=== PATIENT | female | born 1990 | race Asian ===

== ENCOUNTER 2018-11-20 23:36 | Emergency (ER) | payer BC, OTHER ==
[2018-11-20] MEDS ORDERED: Lidocaine 1% 20 ML MDV INFILT ONE ×2 (23:37)
[2018-11-20 23:50] VITALS: BP 147/77
[2018-11-21] MEDS ORDERED: Amoxicillin/Clavulanate K 875-125 MG Tab PO ONE (00:07)
--- NOTE | 2018-11-21 00:10 | EDM.PDOC ---
ED HPI GENERAL MEDICAL PROBLEM - General Chief Complaint: Laceration Stated Complaint: LACERATION ON CALF Time Seen by Provider: 11/20/18 23:40 Source of Information: Reports: Patient, Other (coworker) History Limitations: Reports: No Limitations - History of Present Illness INITIAL COMMENTS - FREE TEXT/NARRATIVE: 28 y.o. female came to the ed with her coworker after a knife fell onto her right lower leg at work, wound was bleeding immediately. 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 BP 147/ 77 Temp 36.6 pulse 69 RR 16 Pulse ox 100% on RA Onset Date: 11/20/18 Onset Time: 23:00 Duration: Minutes:, Constant Location: Reports: Lower Extremity, Right - Related Data Allergies Allergy/AdvReac Type Severity Reaction Status Date / Time No Known Allergies Allergy Verified 11/20/18 23:51 Home Meds: Home Meds Control Pill 11/20/18 [History] Amoxicillin/Potassium Clav [Augmentin 875-125 Tablet] 1 each PO BID #20 tablet 11/21/18 [Rx] Past Medical History - Past Health History Medical/Surgical History: Denies Medical/Surgical History Other Gastrointestinal History: related heartburn Other Musculoskeletal History: leg pain Social & Family History - Tobacco Use Smoking Status *Q: Never Smoker - Recreational Drug Use Recreational Drug Use: No ED ROS GENERAL - Review of Systems Review Of Systems: See Below Constitutional: Reports: No Symptoms HEENT: Reports: No Symptoms Respiratory: Reports: No Symptoms Cardiovascular: Reports: No Symptoms Endocrine: Reports: No Symptoms GI/Abdominal: Reports: No Symptoms : Reports: No Symptoms Musculoskeletal: Reports: No Symptoms Skin: Reports: Wound (left lower leg) Neurological: Reports: No Symptoms Psychiatric: Reports: No Symptoms Hematologic/Lymphatic: Reports: No Symptoms Immunologic: Reports: No Symptoms ED EXAM, SKIN/RASH Exam: See Below Exam Limited By: No Limitations General Appearance: Alert, WD/WN, Mild Distress Eye Exam: Bilateral Eye: Normal Inspection Ears: Normal External Exam Nose: Normal Inspection Throat/Mouth: Normal Inspection, Normal Lips, Normal Teeth, Normal Gums, Normal Voice, No Airway Compromise Head: Atraumatic, Normocephalic Neck: Normal Inspection, Supple, Non-Tender, Full Range of Motion Respiratory/Chest: No Respiratory Distress, Lungs Clear, Normal Breath Sounds, No Accessory Muscle Use, Chest Non-Tender Cardiovascular: Normal Peripheral Pulses, Regular Rate, Rhythm, No Edema, No Gallop, No JVD, No Murmur, No Rub Peripheral Pulses: 1+: Brachial (R) GI/Abdominal: Normal Bowel Sounds, Soft, Non-Tender, No Organomegaly, No Abnormal Bruit, No Mass, Pelvis Stable (Female) Exam: Deferred Rectal (Female) Exam: Deferred Back Exam: Normal Inspection, Full Range of Motion Extremities: Normal Inspection, Normal Range of Motion, Non-Tender, No Pedal Edema Neurological: Alert, Oriented, CN II-XII Intact, Normal Cognition, Normal Gait Psychiatric: Normal Affect, Normal Mood Skin: Warm, Dry, Wound/Incision (LAC right lower extremity) Location, Skin: Lower Extremity, Right Characteristics: Other (no rash) Associated features: Warmth, Tenderness, Swelling Lymphatic: No Adenopathy ED SKIN PROCEDURES - Laceration/Wound Repair Right Middle Medial Leg Lac/Wound length In cm: 2 Appearance: Subcutaneous, Linear, Clean Distal NVT: Neuro & Vascular Intact, No Tendon Injury Anesthetic Type: Local Local Anesthesia - Lidocaine (Xylocaine): 1% Plain Local Anesthetic Volume: 3cc Skin Prep: Providone-Iodine (Betadine) Saline Irrigation (cc's): 2 Exploration/Debridement/Repair: Wound Explored, In a Bloodless Field, Explored to Base Closed with: Sutures Suture Size: 4-0 # of Sutures: 4 Suture Type: Interrupted Sterile Dressing Applied: Nurse Tetanus Status Addressed: Yes (utd 2-13) Complications: No Course - Vital Signs Text/Narrative:: 28 y.o. female came to the ed with her coworker after a knife fell onto her right lower leg at work, wound was bleeding immediately. 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 BP 147/ 77 Temp 36.6 pulse 69 RR 16 Pulse ox 100% on RA PE: WNWD W F tayla righ lower leg LAC Procedure: Please see note above. Impression: Laceration left lower leg, repaired in the ed Tx: Wound care, Augmentin Reexam: Improved Plan: D/C with instructions Last Recorded V/S: Last Vital Signs Temp 36.6 C 11/20/18 23:40 Pulse 69 11/20/18 23:40 Resp 16 11/20/18 23:40 BP 147/77 H 11/20/18 23:40 Pulse Ox 100 11/20/18 23:40 - Orders/Labs/Meds Meds: Medications Discontinued Medications Generic Name Dose Route Start Last Admin Trade Name Unique PRN Reason Stop Dose Admin Amoxicillin/Clavulanate Potassium 1 tab 11/21/18 00:07 Augmentin 875 Mg/125 Mg PO 11/21/18 00:08 ONETIME ONE Departure - Departure Time of Disposition: 00:07 Disposition: Home, Self-Care 01 Condition: Good Clinical Impression: Laceration - Discharge Information Prescriptions: Amoxicillin/Potassium Clav [Augmentin 875-125 Tablet] 1 each PO BID #20 tablet Referrals: Arturo Chao MD [Primary Care Provider] - Forms: ED Department Discharge Additional Instructions: Please apply neosporine ointment twice daily to wound, Augmentin as recommended , wound check in 2 days, suture removal in 10 days, come back if your symptoms get worse acutely.
== END 2018-11-21 00:25 | disposition home or self-care (01) ==
LOC: FB.ED 23:36
DX: S81.811A Laceration without foreign body, right lower leg, initial encounter (principal); W26.0XXA Contact with knife, initial encounter; Y99.0 Civilian activity done for income or pay
CPT/HCPCS: 12001; 99000; 99282; A9270

== ENCOUNTER 2021-05-26 20:08 | Emergency (ER) | payer BC, OTHER ==
[2021-05-26] MEDS ORDERED: Nitrofurantoin Monohydrate/Macrocrystalline 100 MG Cap PO ONE (20:09)
--- NOTE | 2021-05-26 20:48 | EDM.PDOC ---
ED HPI GENERAL MEDICAL PROBLEM - General Chief Complaint: Genitourinary Problem Stated Complaint: STOMACH PAIN Time Seen by Provider: 05/26/21 20:46 Source of Information: Reports: Patient History Limitations: Reports: No Limitations - History of Present Illness INITIAL COMMENTS - FREE TEXT/NARRATIVE: Tara jones is about 8 week .and complains of dysuria,frequency and left flank,and lower back pain. Also has a low grade fever. No other systemic symptoms, or vaginal bleeding. Treatments FAMILY MEDICINE RESIDENT: Reports: Acetaminophen L lower back radiating to L lower abdomen Pain Score (Numeric/FACES): 6 - Related Data Allergies Allergy/AdvReac Type Severity Reaction Status Date / Time No Known Allergies Allergy Verified 05/26/21 20:32 Home Meds: Home Meds Pnv No.95/Ferrous Fum/Folic AC [ Multivitamin Tablet] 1 each PO DAILY 05/26/21 [History] Past Medical History - Past Health History Medical/Surgical History: Denies Medical/Surgical History Other Gastrointestinal History: related heartburn Other Musculoskeletal History: leg pain ED ROS GENERAL - Review of Systems Review Of Systems: Comprehensive ROS is negative, except as noted in HPI. ED EXAM, RENAL/ - Physical Exam Exam: See Below Exam Limited By: No Limitations General Appearance: Alert, WD/WN, No Apparent Distress Back Exam: Normal Inspection, CVA Tenderness (L) Extremities: Normal Inspection Neurological: Alert, CN II-XII Intact Course - Vital Signs Last Recorded V/S: Last Vital Signs Temp 99.7 F 05/26/21 20:20 Pulse 71 05/26/21 20:20 Resp 18 05/26/21 20:20 BP 142/92 H 05/26/21 20:20 Pulse Ox 100 05/26/21 20:20 - Orders/Labs/Meds Orders: Active Orders 24 hr Category Date Time Status OB Follow Up 1st Gest [US] Stat Exams 05/26/21 21:02 Ordered CULTURE URINE [] Routine Lab 05/26/21 20:20 Received Labs: Laboratory Tests 05/26/21 05/26/21 Range/Units 20:40 20:45 WBC 12.3 H (3.0-10.3) x10-3/uL RBC 4.57 (3.60-5.20) x10(6)uL Hgb 12.9 (11.4-15.5) g/dL Hct 38.5 (34.2-48.2) % MCV 84.3 (76.7-100.5) fL MCH 28.3 (23.9-33.9) pg MCHC 33.5 (31.9-34.8) g/dL RDW 12.6 (12.3-16.5) % Plt Count 332 (151-488) x10(3)uL MPV 7.1 (7.1-12.4) fL Neut % (Auto) 78.4 H (30.8-76.2) % Lymph % (Auto) 12.7 L (18.4-52.1) % [place] % (Auto) 8.2 (4.4-15.7) % Eos % (Auto) 0.4 L (0.6-8.1) % Baso % (Auto) 0.3 (0.2-1.5) % Neut # (Auto) 9.6 H (1.5-6.3) x10-3/uL Lymph # (Auto) 1.6 (1.0-4.4) x10-3/uL [place] # (Auto) 1.0 (0.3-1.0) x10-3/uL Eos # (Auto) 0.1 (0.0-0.8) x10-3/uL Baso # (Auto) 0.0 (0.0-0.1) x10-3/uL Urine Color Yellow (YELLOW) Urine Appearance Slightly cloudy (CLEAR) Urine pH 6.0 (5.0-6.5) Ur Specific [place] 1.020 (1.010-1.025) Urine Protein 30 H (NEGATIVE) mg/dL Urine Glucose (UA) Normal (NORMAL) mg/dL Urine Ketones Negative (NEGATIVE) mg/dL Urine Occult Blood Large H (NEGATIVE) Urine Nitrite Negative (NEGATIVE) Urine Bilirubin Negative (NEGATIVE) Urine Urobilinogen Normal (NEGATIVE) mg/dL Ur Leukocyte Esterase Large H (NEGATIVE) Urine RBC 5-10 H (0-5) Urine WBC 75-100 H (0-5) Ur Squamous Epith Cells Occasional (NS,R,O) Urine Bacteria Few H (NS) Meds: Medications Discontinued Medications Generic Name Dose Route Start Last Admin Trade Name Freq PRN Reason Stop Dose Admin Ketorolac Tromethamine 60 mg 05/26/21 21:26 Ketorolac 30 Mg/Ml Sdv IM 05/26/21 21:27 ONETIME ONE Departure - Departure Time of Disposition: 21:04 Disposition: Home, Self-Care 01 Condition: Good Clinical Impression: UTI, Urinary tract infectious disease, Round ligament pain - Discharge Information Instructions: Round Ligament Pain, and Urinary Tract Infection Referrals: Wilfrid Maya MD [Primary Care Provider] - 05/28/21 Forms: ED Department Discharge Additional Instructions: Activity as tolerated. Increase fluids. Nitrofurantoin (Macrobid) 100mg 2 times a day until gone. Tylenol as needed for pain or fever. Ultrasound at [facility] on Monday at 11:30, come with full bladder. Follow up May 28, in the afternoon with Dr. Maya at [facility] after your ultrasound, call for time. Sepsis Event Note (ED) - Focused Exam Vital Signs: Vital Signs Temp Pulse Resp BP Pulse Ox 05/26/21 20:20 99.7 F 71 18 142/92 H 100 05/26/21 20:10 99.7 F 71 18 142/92 H 100 - Problem List & Annotations (1) UTI, Urinary tract infectious disease SNOMED Code(s): 39117499 Code(s): N39.0 - URINARY TRACT INFECTION, SITE NOT SPECIFIED Status: Acute Current Visit: No (2) Round ligament pain SNOMED Code(s): 714306744 Code(s): N94.9 - UNSP COND ASSOC W FEMALE GENITAL ORGANS AND MENSTRUAL CYCLE Status: Acute Current Visit: Yes - Problem List Review Problem List Initiated/Reviewed/Updated: Yes - My Orders Last 24 Hours: My Active Orders 05/26/21 20:20 CULTURE URINE [RM] Routine 05/26/21 21:02 OB Follow Up 1st Gest [US] Stat - Assessment/Plan Last 24 Hours: My Active Orders 05/26/21 20:20 CULTURE URINE [RM] Routine 05/26/21 21:02 OB Follow Up 1st Gest [US] Stat Plan: Macrobid 100 mg po bid x 5 days. Pelvic OB US scheduled. Toradol IM
[2021-05-26] MEDS ORDERED: Ketorolac 30 MG/ML SDV IM ONE (21:26)
[2021-05-27 00:40] VITALS: BP 148/90; PULSE 62
== END 2021-05-26 21:37 | disposition home or self-care (01) ==
LOC: FB.ED 20:08
DX: O23.41 Unspecified infection of urinary tract in pregnancy, first trimester (principal); O99.891 Other specified diseases and conditions complicating pregnancy; R10.2 Pelvic and perineal pain; Z3A.08 8 weeks gestation of pregnancy
CPT/HCPCS: 36415; 81001; 85025; 87086; 87088; 87186; 99284; A9270; J1885; 96372